=== PATIENT | female | born 1975 | race African-American/Black ===

== ENCOUNTER 2017-04-20 16:15 | Emergency (ER) | payer OTHER ==
[~2017-04-20] VITALS: Ht 162.6 cm; Wt 90.7 kg
[2017-04-20] MEDS ORDERED: PREDNISONE 20 M20 MG PO (18:07)
[2017-04-20] MEDS ORDERED: TESSALON PERLE100 MG PO (18:07)
[2017-04-20] MEDS ORDERED: VENTOLIN HFA 1818 GM INH (18:07)
[2017-04-20 18:15] VITALS: BP 141/80
== END 2017-04-20 18:16 | disposition home or self-care (01) ==
LOC: M.ERS 16:15
DX: J40 Bronchitis, not specified as acute or chronic (principal)